=== PATIENT | female | born 1970 | race Two or more races ===

== ENCOUNTER 2019-06-06 06:38 | Day surgery (SDC) | payer OTHER ==
[~2019-06-06 06:38] MED LIST: NABUMETONE750 MG PO
== END 2019-06-06 12:05 | disposition home or self-care (01) ==
LOC: CIR.AMB 06:38
DX: M67.431 Ganglion, right wrist (principal)

== ENCOUNTER 2024-05-02 21:29 | Emergency (ER) | payer OTHER ==
[~2024-05-02] VITALS: Ht 167.6 cm; Wt 95.7 kg
[2024-05-02] MEDS ORDERED: COZAAR50 MG PO (22:14)
[2024-05-03] MEDS ORDERED: ORPHENADRINE CITRATE 30 MG/ML AMPUL IM STA (02:02)
[2024-05-03] MEDS ORDERED: KETOROLAC TROMETHAMINE 60 MG VIAL IM STA (02:02)
[2024-05-03] MEDS ORDERED: NORFLEX100MG PO (02:07)
[2024-05-03] MEDS ORDERED: MELOXICAM15 MG PO (02:07)
[2024-05-03] MEDS ORDERED: ORPHENADRINE CITRATE 30 MG/ML AMPUL ONE (02:11)
[2024-05-03] MEDS ORDERED: KETOROLAC TROMETHAMINE 60 MG VIAL IM ONE (02:11)
== END 2024-05-03 02:20 | disposition home or self-care (01) ==
LOC: ER 21:29
DX: R07.89 Other chest pain (principal); I10 Essential (primary) hypertension

== ENCOUNTER 2024-06-05 23:27 | Emergency (ER) | payer OTHER ==
[~2024-06-05] VITALS: Ht 167.6 cm; Wt 95.3 kg
[~2024-06-05 23:27] MED LIST changes: +COZAAR50 MG PO; +MELOXICAM15 MG PO; +NORFLEX100MG PO
[2024-06-06] MEDS ORDERED: KETOROLAC TROMETHAMINE 60 MG VIAL IM STA (00:56)
[2024-06-06] MEDS ORDERED: DEXAMETHASONE SODIUM PHOSPHATE 4 MG/ML VIAL IM STA (00:57)
[2024-06-06] MEDS ORDERED: DEXAMETHASONE SODIUM PHOSPHATE 4 MG/ML VIAL ONE (01:00)
[2024-06-06] MEDS ORDERED: KETOROLAC TROMETHAMINE 60 MG VIAL IM ONE (01:00)
== END 2024-06-06 01:13 | disposition home or self-care (01) ==
LOC: ER 23:29
DX: M62.830 Muscle spasm of back (principal)

== ENCOUNTER 2024-08-20 05:10 | Emergency (ER) | payer OTHER ==
[~2024-08-20] VITALS: Ht 167.6 cm; Wt 95.3 kg
[2024-08-20] MEDS ORDERED: KETOROLAC TROMETHAMINE 60 MG VIAL IM ONE (06:00)
[2024-08-20] MEDS ORDERED: KETO10TA2 PO (09:52)
[2024-08-20] MEDS ORDERED: LORazepam 1 MG TABLET PO ONE (10:00)
== END 2024-08-20 10:07 | disposition home or self-care (01) ==
LOC: ER 05:11
DX: M94.0 Chondrocostal junction syndrome [Tietze] (principal); I10 Essential (primary) hypertension

== ENCOUNTER 2024-08-30 07:07 | Outpatient (CLI) | payer OTHER ==
[~2024-08-30 07:07] MED LIST changes: +KETO10TA2 PO
[2024-08-30 07:54] LABS: HEMATOCRIT 38.2 % (36.0-45.00); HEMOGLOBIN 12.5 g/dL (12.0-15.00); MEAN CORPUSCULAR HEMOGLOBIN 26.9 pg (27.00-32.0); MEAN CORPUSCULAR HGB CONC 32.8 g/dl (32.0-36.0); PLATELET COUNT 201 K/uL (150-450); RED BLOOD COUNT 4.67 M/uL (4.00-6.00); RED CELL DISTRIBUTION WIDTH 14.2 % (11.5-14.5)
[2024-08-30 08:04] LABS: PH,URINE 5.5 (5.0-8.0); URINE APPEARANCE Clear; URINE BILIRRUBIN Negative (NEGATIVE); URINE BLOOD Negative; URINE COLOR Yellow; URINE GLUCOSE Negative (NEGATIVE); URINE KETONE Trace (NEGATIVE); URINE LEUKOCYTE Negative; URINE NITRATE Negative; URINE PROTEIN Negative (NEGATIVE); URINE UROBILINOGEN 0.2 E.U./dl
[2024-08-30 08:07] LABS: URINE BACTERIA 765.9 uL (0.0-1933); URINE EPITHELIAL CELLS 42.1 uL (0.0-38.8); URINE RBC 11.4 uL (0.0-20.8); URINE WBC 13.9 uL (0.0-23.2)
[2024-08-30 08:47] LABS: ALBUMIN 4.1 gm/dL (3.4-5.0); BILIRUBIN TOTAL 0.42 mg/dL (0.3-1.2); CALCIUM 9.5 mg/dL (8.5-10.1); CHOL HDL RATIO 3.9 (0-5.0); CREATININE SERUM 0.68 mg/dL (0.55-1.02); GFR 90.51; GLOBULINA 3.1 G/DL (2.4-3.5); POTASSIUM 4.14 mEq/L (3.5-5.1); TOTAL PROTEIN 7.2 gm/dL (6.4-8.2)
[2024-08-30 09:02] LABS: TSH 3.74 uIU/mL (0.358-3.74)
== END 2024-08-30 07:08 | disposition home or self-care (01) ==
LOC: LAB 07:07
DX: R03.0 Elevated blood-pressure reading, without diagnosis of hypertension (principal); E78.00 Pure hypercholesterolemia, unspecified; E66.01 Morbid (severe) obesity due to excess calories; M62.830 Muscle spasm of back

== ENCOUNTER 2024-08-30 08:08 | Outpatient (CLI) | payer OTHER | END 2024-08-30 08:15 | disposition home or self-care (01) | LOC: SONOGRAMA 08:08 | PROVIDERS: ATTEND Obstetrics & Gynecology | DX: N64.4 Mastodynia (principal) ==

== ENCOUNTER 2024-12-08 02:30 | Emergency (ER) | payer OTHER ==
[~2024-12-08] VITALS: Ht 167.6 cm; Wt 95.3 kg
[2024-12-08] MEDS ORDERED: hydrOXYzine PAMOATE 50 MG CAPSULE PO STA (05:26)
[2024-12-08] MEDS ORDERED: ORPHENADRINE CITRATE 30 MG/ML AMPUL IM STA (05:26)
[2024-12-08] MEDS ORDERED: KETOROLAC TROMETHAMINE 60 MG VIAL IM STA (05:26)
[2024-12-08] MEDS ORDERED: hydrOXYzine PAMOATE 50 MG CAPSULE PO ONE (05:32)
[2024-12-08] MEDS ORDERED: ORPHENADRINE CITRATE 30 MG/ML AMPUL ONE (05:32)
[2024-12-08] MEDS ORDERED: KETOROLAC TROMETHAMINE 60 MG VIAL IM ONE (05:32)
== END 2024-12-08 05:44 | disposition home or self-care (01) ==
LOC: ER 02:32
DX: M62.830 Muscle spasm of back (principal)

== ENCOUNTER 2025-02-15 14:38 | Outpatient (CLI) | payer OTHER | END 2025-02-15 14:41 | disposition home or self-care (01) | LOC: RAD 14:38 | DX: R07.9 Chest pain, unspecified (principal); N63.0 Unspecified lump in unspecified breast; Z12.31 Encounter for screening mammogram for malignant neoplasm of breast ==

== ENCOUNTER 2025-02-21 15:21 | Emergency (ER) | payer OTHER ==
[~2025-02-21] VITALS: Ht 167.6 cm; Wt 96.2 kg
[2025-02-21] MEDS ORDERED: FAMOtidine 10 MG/ML (4ML VIAL) IV PUSH ONE (17:15)
[2025-02-21] MEDS ORDERED: KETOROLAC TROMETHAMINE 60 MG VIAL IM ONE ×2 (17:15→17:29)
[2025-02-21] MEDS ORDERED: FAMOTIDINE/PF 20 MG/2 ML VIAL ONE (17:29)
[2025-02-21 18:34] LABS: BASO % 0.9 % (0.1-1.2); EOS # 0.09 (0.04-0.54); EOS % 1.4 % (0.7-7.0); HEMATOCRIT 38.1 % (34.1-44.9); HEMOGLOBIN 12.5 g/dL (11.2-15.7); LYMPH # 1.89 (1.18-3.74); LYMPH % 29.5 % (19.3-53.1); MEAN CORPUSCULAR HEMOGLOBIN 27.4 pg (25.6-32.2); MONO # 0.38 (0.24-0.82); MONO % 5.9 % (4.7-12.5); NEUT # 3.98 (1.56-6.13); NEUT % 62.1 % (34.0-71.1); PLATELET COUNT 275 K/uL (163-369); RED BLOOD COUNT 4.57 M/uL (3.93-5.22); RED CELL DISTRIBUTION WIDTH 13.9 % (11.6-14.4)
== END 2025-02-21 21:50 | disposition home or self-care (01) ==
LOC: ER 15:39
PROVIDERS: General Practice
DX: M94.0 Chondrocostal junction syndrome [Tietze] (principal)

== ENCOUNTER 2025-05-17 02:47 | Emergency (ER) | payer OTHER ==
[~2025-05-17] VITALS: Ht 167.6 cm; Wt 91.6 kg
[2025-05-17] MEDS ORDERED: ROSUVASTATIN CA10 MG PO (03:48)
[2025-05-17] MEDS ORDERED: KETOROLAC TROMETHAMINE 60 MG VIAL IM STA (04:12)
[2025-05-17] MEDS ORDERED: ORPHENADRINE CITRATE 30 MG/ML AMPUL IM STA (04:13)
[2025-05-17] MEDS ORDERED: TRIAMCINOLONE ACETONIDE 40 MG/ML VIAL IM STA (04:13)
[2025-05-17] MEDS ORDERED: TRIAMCINOLONE ACETONIDE 40 MG/ML VIAL ONE (04:15)
[2025-05-17] MEDS ORDERED: ORPHENADRINE CITRATE 30 MG/ML AMPUL ONE (04:15)
[2025-05-17] MEDS ORDERED: KETOROLAC TROMETHAMINE 60 MG VIAL IM ONE (04:16)
[2025-05-17] MEDS ORDERED: DICLOFENAC SOD100 MG PO (04:37)
== END 2025-05-17 04:43 ==
LOC: ER 03:04
DX: M94.0 Chondrocostal junction syndrome [Tietze] (principal); R07.89 Other chest pain; I10 Essential (primary) hypertension